=== PATIENT | female | born 1985 | race Caucasian/White ===

== ENCOUNTER 2017-03-02 12:18 | Emergency (ER) | payer OTHER ==
[~2017-03-02] VITALS: Ht 154.9 cm; Wt 84.0 kg
[~2017-03-02 12:18] MED LIST: DENIES; NO MEDS
[2017-03-02 12:19] VITALS: Ht 154.9 cm; Wt 84.0 kg
[2017-03-02 14:05] LABS: ADD UMIC YES; URINE BILIRUBIN (Dip) NEGATIVE (NEGATIVE); URINE BLOOD (Dip) TRACE (NEGATIVE); URINE COLOR YELLOW (YELLOW); URINE GLUCOSE (Dip) NEGATIVE (NEGATIVE); URINE KETONES (Dip) 3+ (NEGATIVE); URINE LEUKOCYTE ESTERASE (Dip) 1+ (NEGATIVE); URINE NITRITE (Dip) NEGATIVE (NEGATIVE); URINE TOTAL PROTEIN (Dip) TRACE (NEGATIVE); URINE UROBILINOGEN (Dip) 1.0 E.U./dL (0.1-1.0)
[2017-03-02 14:15] LABS: ADD SCAN DIFF NO
[2017-03-02 14:16] LABS: BACTERIA,URINE MODERATE; MUCUS,URINE MANY
[2017-03-02 14:19] LABS: BASOPHILS % 0.5 % (0.0-2.0); EOSINOPHILS # 0.3 10^3/ul (0.0-0.5); EOSINOPHILS % 3.9 % (0.0-7.0); HEMATOCRIT 35.6 % (37.0-47.0); HEMOGLOBIN 12.2 g/dl (12.0-16.0); LYMPHOCYTES # 1.8 10^3/ul (0.8-2.9); LYMPHOCYTES % 23.9 % (15.0-51.0); MEAN CORPUSCULAR HEMOGLOBIN 30.7 pg (29.0-33.0); MEAN CORPUSCULAR HGB CONC 34.3 g/dl (32.0-37.0); MEAN CORPUSCULAR VOLUME 89.4 fl (82.0-101.0); MEAN PLATELET VOLUME 9.8 fl (7.4-10.4); MONOCYTE # 0.5 10^3/ul (0.3-0.9); MONOCYTES % 6.7 % (0.0-11.0); NEUTROPHIL # 4.9 10^3/ul (1.6-7.5); NEUTROPHILS % 64.6 % (39.0-77.0); PLATELET COUNT 201 10^3/UL (140-415); RED BLOOD COUNT 3.98 10^6/ul (4.20-5.40); WHITE BLOOD COUNT 7.6 10^3/ul (4.8-10.8)
--- NOTE | 2017-03-02 14:24 | RADRPT ---
PROCEDURE: US OB. CLINICAL INDICATION: Vaginal bleeding TECHNIQUE: Transabdominal views of the pelvis are available for review. COMPARISON: No prior studies are available for comparison. FINDINGS: There is a single intrauterine gestation with the crown-rump length measuring 5.8 cm, corresponding to a gestational age of 12 weeks and 2 days. The heart rate is noted at 152 bpm. The ovaries are not visualized. There is no free fluid. RPTAT: AA IMPRESSION: Single live intrauterine with an estimated gestational age of 12 weeks and 2 days , based on ultrasound measurements. JACOB based on ultrasound measurements is 09/12/2017. .Williams Turk MD, MD Date Time Electronically viewed and signed by .Williams Turk MD, on 03/02/2017 14:24 .S/
[2017-03-02] MEDS ORDERED: NITR-58 PO (15:44)
--- NOTE | 2017-03-02 15:55 | ERD ---
ER Documentation Chief Complaint Date/Time DATE: 03/02/17 TIME: 15:49 Chief Complaint sent by pmd for ultrasound,no heart beat,12 weeks preg , lmp 12/10/16 HPI This is a 31-year-old female presents to the ER sent by her primary care doctor for an ultrasound, as no heart beats were seen. Patient denies any urinary frequency or dysuria. She denies any vaginal bleeding. She denies any pelvic pain. She denies any fevers or chills. A0 ROS 12 point review of systems was done, all negative except per HPI. Medications Home Meds Active Scripts Nitrofurantoin Monohyd Macrocr* (Macrobid*) 100 Mg Capsr, 100 MG PO BID for 7 Days, CAP Prov:CAROLE CHAPMAN 03/02/17 Reported Medications [No Meds] No Conflict Check 05/29/12 [Denies] No Conflict Check 01/13/12 Allergies Allergies: Coded Allergies: No Known Drug Allergy (Verified Allergy, Mild, 03/02/17) PMhx/Soc Medical and Surgical Hx: pt denies Medical Hx, pt denies Surgical Hx History of Surgery: No Anesthesia Reaction: No Hx Neurological Disorder: No Hx Respiratory Disorders: No Hx Cardiac Disorders: No Hx Psychiatric Problems: No Hx Miscellaneous Medical Probl: No Hx Alcohol Use: No Hx Substance Use: No Hx Tobacco Use: No Smoking Status: Never smoker Physical Exam Vitals Vital Signs Date Time Temp Pulse Resp B/P Pulse Ox O2 Delivery O2 Flow Rate FiO2 03/02/17 12:19 98.1 71 18 110/53 98 Physical Exam GENERAL: The patient is well developed and appropriate for usual state of health , in no apparent distress. HEENT: Atraumatic. CHEST: Clear to auscultation bilaterally. There are no rales, wheezes or rhonchi. HEART: Regular rate and rhythm. No murmurs, clicks, rubs or gallops. ABDOMEN: Soft, nontender and nondistended. Good bowel sounds. No rebound or guarding. No gross peritonitis. No gross organomegaly or masses. No Redman sign or McBurney point tenderness. BACK: No midline or flank tenderness. NEURO: Alert and oriented. Result Diagram: 03/02/17 1408 Results 24 hrs Laboratory Tests Test 03/02/17 13:55 03/02/17 14:08 Urine Color YELLOW Urine Clarity CLEAR Urine pH 6.0 Urine Specific Moody >=1.030 Urine Ketones 3+ Urine Nitrite NEGATIVE Urine Bilirubin NEGATIVE Urine Urobilinogen 1.0 E.U./dL Urine Leukocyte Esterase 1+ Urine Microscopic RBC 2-5/HPF Urine Microscopic WBC 5-10/HPF Urine Epithelial Cells MANY Urine Bacteria MODERATE Urine Mucus MANY Urine Yeast FEW Urine Hemoglobin TRACE Urine Glucose NEGATIVE% Urine Total Protein TRACE White Blood Count 7.610^3/ul Red Blood Count 3.9810^6/ul Hemoglobin 12.2g/dl Hematocrit 35.6% Mean Corpuscular Volume 89.4fl Mean Corpuscular Hemoglobin 30.7pg Mean Corpuscular Hemoglobin Concent 34.3g/dl Red Cell Distribution Width 13.0% Platelet Count 74460^3/UL Mean Platelet Volume 9.8fl Neutrophils % 64.6% Lymphocytes % 23.9% Monocytes % 6.7% Eosinophils % 3.9% Basophils % 0.5% Nucleated Red Blood Cells % 0.0/100WBC Neutrophils # 4.910^3/ul Lymphocytes # 1.810^3/ul Monocytes # 0.510^3/ul Eosinophils # 0.310^3/ul Basophils # 0.010^3/ul Nucleated Red Blood Cells # 0.010^3/ul Beta HCG, Quantitative 58118.0mIU/ml Procedures/MDM Differential diagnosis: Threatened , missed , incomplete , ectopic , molar , UTI, pyelonephritis. At this time patient's is normal. Patient does have a urinary tract infection , treated with Macrobid. Suspicion for pyelonephritis is low. Patient is to follow-up with his primary care doctor within 1-2 days or return to ER sooner if symptoms worsen. My medical decision making shared with the patient she understands and agrees with plan. Departure Diagnosis: Primary Impression: UTI (urinary tract infection) Condition: Stable Patient Instructions: Understanding Urinary Tract Infections (UTIs) Additional Instructions: Call your primary care doctor TOMORROW for an appointment during the next 1-2 days.See the doctor sooner or return here if your condition worsens before your appointment time. CAROLE CHAPMAN March 02, 2017 15:55
[2017-03-02 16:11] VITALS: BP 114/66; PULSE 71; RESP 18
== END 2017-03-02 16:06 | disposition home or self-care (01) ==
LOC: FTE 12:18
DX: O23.41 Unspecified infection of urinary tract in pregnancy, first trimester (principal); R10.2 Pelvic and perineal pain; Z3A.12 12 weeks gestation of pregnancy
CPT/HCPCS: 76801; 81001; 84702; 85025; 86900; 86901; Z7502

== ENCOUNTER 2018-04-10 19:07 | Emergency (ER) | END 2018-04-11 00:47 | disposition home or self-care (01) ==

== ENCOUNTER 2018-09-24 23:30 | Inpatient (IN) | payer OTHER ==
[~2018-09-24] VITALS: Ht 152.4 cm; Wt 91.5 kg
[~2018-09-24 23:30] MED LIST changes: +ACET325T33 PO; +CEPH-443 PO; +NITR-58 PO
--- NOTE | 2018-09-25 00:23 | HP ---
Date/Time of Note Date/Time of Note DATE: 09/25/18 TIME: 00:20 OB - History Hx of Present Free Text/Dictation Patient is a 33-year-old grand multipara 9 para 8 at 38 weeks and 6 days of gestation with estimated date of delivery October 02, 2018 Patient presents with chief complaint of leaking clear fluid since 11 PM tonight ROM+ positive GBS status is unknown Estimated Due Date: Oct 02, 2018 : 9 Para: 8 Care: Good Care Obstetrical Complications: None Medical Complications: None Past Family/Social History * Past Medical, Surgical, Family and Obstetric Histories reviewed from chart. OB Admission Exam Physical Exam HEENT: WNL Heart: Rhythm Normal Lungs: Clear, Equal Abdomen: WNL Extremities: Normal Reflexes: Normal Cervical Dilatation: 1cm Effacement: 0% Station: -3 Membranes: Ruptured (Since 11 PM) Amniotic Fluid: Clear Heart Rate: 140's Accelerations: Accelerations Present Decelerations: No Decelerations Varibility: Moderate Contractions on Admission: None OB Assessment/Plan Reason for admission: active labor Other plan: Admit to labor and delivery Antibiotics for GBS prophylaxis Type and screen and hold 2 units Oxytocin augmentation Epidural as needed BLOSSOM BENNETT MD Sep 25, 2018 00:22
[2018-09-25 00:40] VITALS: Ht 152.4 cm; Wt 91.5 kg
[2018-09-25 00:41] VITALS: BP 107/56; PULSE 121; RESP 16
[2018-09-25] MEDS ORDERED: CARBOPROST 250 MCG INJ IM PRN ×2 (01:00→19:00)
[2018-09-25] MEDS ORDERED: METHYLERGONOVINE 0.2 MG INJ IM PRN ×2 (01:00→19:00)
[2018-09-25] MEDS ORDERED: OXYTOCIN 30 UNITS/LR 500 ML IV PRN ×2 (01:00→19:00)
[2018-09-25] MEDS ORDERED: LIDOCAINE 1% (MPF) 30 ML INJ INJ PRN (01:00)
[2018-09-25] MEDS ORDERED: MISOPROSTOL 200 MCG TAB PR PRN ×2 (01:00→19:00)
[2018-09-25] MEDS ORDERED: AMPICILLIN 2 GM/NS (PMX) 100 ML IV ONE (01:00)
[2018-09-25] MEDS ORDERED: OXYTOCIN 30 UNITS/LR 500 ML IV SCH ×4 (01:00→18:37)
[2018-09-25] MEDS ORDERED: BUTORPHANOL 2 MG INJ IV PRN (01:00)
[2018-09-25] MEDS: LACTATED RINGER'S 1,000 ML IV SCH ×2 (01:47→07:51)
[2018-09-25] MEDS ORDERED: AMPICILLIN 1 GM/NS (PMX) 50 ML IV SCH (05:00)
[2018-09-25] MEDS ORDERED: AMPICILLIN 2 GM/NS (PMX) 100 ML IVPB SCH (14:30)
--- NOTE | 2018-09-25 17:06 | LDN ---
Date/Time of Note Date/Time of Note DATE: 09/25/18 TIME: 17:05 Delivery Summary Weeks of Gestation 38+ Meconium: none Episiotomy: No Estimated blood loss: 200 Sponge & Needle done & correct: Yes All needle counts correct: Yes Any foreign bodies felt in the: No Infant Delivery Information Apgars 1 Minute: 9 5 Minute: 9 Suctioning Nose & mouth suctioned at jesus: Yes Delee suction performed: Yes Umbilical Cord Umbilical cord with: 3 Vessels Cord presentations: nuchal cord (x1) Cord Blood was obtained: Yes Mother & Baby Disposition Disposition Mom & Baby to Maternity; Good: Yes Baby to NICU: No ALFRED HASKINS M.D. Sep 25, 2018 17:06
[2018-09-25 18:25] VITALS: BP 117/56; PULSE 92; RESP 18
[2018-09-25] MEDS: IBUPROFEN 600 MG TAB PO SCH (18:53)
[2018-09-25] MEDS ORDERED: ZOLPIDEM 5 MG TAB PO PRN (19:00)
[2018-09-25] MEDS ORDERED: BENZOCAINE 20% 56 ML SPRAY TOP PRN (19:00)
[2018-09-25] MEDS ORDERED: NACL 0.9% 3 ML SYG IV SCH (19:00)
[2018-09-25] MEDS ORDERED: OXYCODONE/ASPIRIN (4.88/325) TAB PO PRN (19:00)
[2018-09-25] MEDS ORDERED: WITCH HAZEL/GLYCERIN PAD PR PRN (19:00)
[2018-09-25 19:30] VITALS: BP 98/50; PULSE 96; RESP 18
[2018-09-26] VITALS: BP 97/50; PULSE 73; RESP 18
[2018-09-26] MEDS: IBUPROFEN 600 MG TAB PO SCH ×4 (00:15→17:31)
[2018-09-26 04:20] VITALS: BP 99/55; PULSE 66; RESP 18
--- NOTE | 2018-09-26 06:45 | NUR ---
EOSS. PT. STABLE.FUNDUS FIRM ,NORMAL LOCHIA . NO COMPLAINT OF PAIN OR ANY DISCOMFORT NOTED AT THIS TIME. BONDING WITH HER BABY MOVING TOWARDS EXPECTED GOALS.
[2018-09-26 07:45] VITALS: BP 97/55; PULSE 82; RESP 18
--- NOTE | 2018-09-26 12:02 | QN ---
Documentation Comment PPD#1 is stable afebrile tolerates diet No VB +BM +voids Vs stable Gen NAD Abd soft NT ND Genitalia No blood at perineum --->Discharge plan ALFRED HASKINS M.D. Sep 26, 2018 12:02
--- NOTE | 2018-09-26 12:03 | DS ---
Date/Time of Note Date/Time of Note DATE: 09/26/18 TIME: 12:02 Discharge Summary Admission/Discharge Info Admit Date/Time Sep 25, 2018 at 01:00 Discharge Date/Time Sep Discharge Diagnosis Patient Condition: Good Hospital Course uneventful Home Meds Active Scripts Cephalexin* (Keflex*) 500 Mg Capsule, 500 MG PO BID for 7 Days, CAP Prov:ARIGRETCHENCAROLE C 04/11/18 Acetaminophen* (Tylenol*) 325 Mg Tablet, 2 TAB PO Q8 PRN for PAIN AND OR ELEVATED TEMP, #20 TAB Prov:ARICAROLE MONK 04/11/18 Nitrofurantoin Monohyd Macrocr* (Macrobid*) 100 Mg Capsr, 100 MG PO BID for 7 Days, CAP Prov:ARICAROLE Almonte 03/02/17 Reported Medications [No Meds] No Conflict Check 05/29/12 [Denies] No Conflict Check 01/13/12 Primary Care Provider Not On Staff Doctor Pending Labs Laboratory Tests Test 09/26/18 08:31 White Blood Count 6.3 10^3/ul (4.8-10.8) Red Blood Count 3.69 10^6/ul (4.20-5.40) Hemoglobin 9.0 g/dl (12.0-16.0) Hematocrit 29.5 % (37.0-47.0) Mean Corpuscular Volume 79.9 fl (82.0-101.0) Mean Corpuscular Hemoglobin 24.4 pg (29.0-33.0) Mean Corpuscular Hemoglobin Concent 30.5 g/dl (32.0-37.0) Red Cell Distribution Width 16.4 % (11.5-14.5) Platelet Count 155 10^3/UL (140-415) Mean Platelet Volume 10.7 fl (7.4-10.4) Immature Granulocytes % 0.800 % (0.001-0.429) Neutrophils % 62.4 % (39.0-77.0) Lymphocytes % 25.6 % (15.0-51.0) Monocytes % 9.4 % (0.0-11.0) Eosinophils % 1.3 % (0.0-7.0) Basophils % 0.5 % (0.0-2.0) Nucleated Red Blood Cells % 0.0 /100WBC (0.0-0.0) Immature Granulocytes # 0.050 10^3/ul (0.0-0.031) Neutrophils # 3.9 10^3/ul (1.6-7.5) Lymphocytes # 1.6 10^3/ul (0.8-2.9) Monocytes # 0.6 10^3/ul (0.3-0.9) Eosinophils # 0.1 10^3/ul (0.0-0.5) Basophils # 0.0 10^3/ul (0.0-0.1) Nucleated Red Blood Cells # 0.0 10^3/ul (0.0-0.0) ALFRED HASKINS M.D. Sep 26, 2018 12:03
[2018-09-26 16:00] VITALS: BP 90/51; PULSE 71; RESP 18
--- NOTE | 2018-09-26 18:36 | NUR ---
EOSS:PATIENT IN STABLE CONDITION AND BONDING WELL WITH THE BABY.
[2018-09-26 19:35] VITALS: BP 98/58; PULSE 84; RESP 18
[2018-09-27] MEDS: IBUPROFEN 600 MG TAB PO SCH ×2 (00:04→05:44)
[2018-09-27 04:10] VITALS: BP 114/61; PULSE 64; RESP 18
--- NOTE | 2018-09-27 05:13 | NUR ---
EOSS. PT. STABLE. NO RESP. DISTRESS NOTED.NO COMPLAINT OF PAIN OR ANY DISCOMFORT NOTED .BONDING WITH HER BABY. MOVING TOWARDS EXPECTED GOALS.
[2018-09-27 07:55] VITALS: BP 92/72; PULSE 86; RESP 20
[2018-09-27] MEDS ORDERED: DIPHTH/TET/ACEL PERTUSS (ADULT) 0.5 ML VIAL IM* ONE (09:00)
--- NOTE | 2018-09-27 12:03 | NUR ---
DISCHARGED WITH BABY IN STABLE CONDITION.
== END 2018-09-27 12:33 | disposition home or self-care (01) | DRG 807 ==
LOC: OBT 23:30 → L-D 23:30 → OBT 09-25 01:00 → L-D 09-25 01:00 → PP1 09-25 18:15
PROVIDERS: ADMIT Obstetrics & Gynecology; ATTEND Obstetrics & Gynecology
PROC: 10E0XZZ Delivery of Products of Conception, External Approach (ICD-10-PCS; principal; 2018-09-25)
PROC: 4A1HXCZ Monitoring of Products of Conception, Cardiac Rate, External Approach (ICD-10-PCS; 2018-09-25)
DX: O69.81X0 Labor and delivery complicated by cord around neck, without compression, not applicable or unspecified (principal); Z37.0 Single live birth; Z3A.38 38 weeks gestation of pregnancy
CPT/HCPCS: 85025; 85610; 85730; 86592; 86850; 86900; 86901; 86920; 87340; G0463; J0290; J2590; J7120